=== PATIENT | male | born 1955 ===

== ENCOUNTER → 2016-07-29 08:12 | Day surgery (SDC) | payer OTHER ==
--- NOTE | 2016-07-17 09:24 | HP ---
CC: Perry Camacho MD ADMISSION HISTORY AND PHYSICAL: DATE OF ADMISSION: 07/29/16 ATTENDING SURGEON: Gonzalo Paez MD (NURIA Good dictating). CHIEF COMPLAINT: Right inguinal hernia. HISTORY OF PRESENT ILLNESS: This is a generally healthy 61-year-old male who beginning in early Apr began to notice a bulge in the right groin associated with some minor discomfort. This has si nce progressed to occur more frequently during the day when he is upright and active and also increa sed in size. The bulge has remained in the corner of the groin and has not extended into the scrotu m and it has not resulted in any particular GI or symptom changes. He has not had anything to flowers ggest incarceration or strangulation. He does occasionally manually reduce hernia, but most of the time it self-reduces when he is recumbent. He was seen in the office by Dr. Paez on 04/23/16, at which time the exam confirmed the presence of a nontender reducible right inguinal hernia. The p atient also has a history of bilateral hydroceles. He is status post open repair of left inguinal h ernia with mesh by Dr. Carballo about [address] Paez recommended repair and the patien t understands the indications, the risks, benefits, and alternatives. He would like to proceed as s cheduled with open repair right inguinal hernia with mesh. PAST MEDICAL HISTORY: 1. Hyperlipidemia. 2. Irritable bowel syndrome (constipation alternating with diarrhea, but generally controlled by di et). 3. He has bilateral hydroceles. PREVIOUS SURGERIES: Left inguinal herniorrhaphy with mesh, varicocelectomy. CURRENT MEDICATIONS: 1. Rosuvastatin 5 mg once daily. 2. Aspirin 81 mg once daily (the patient instructed to hold for 1 week preoperatively). 3. He also uses a topical [id number] product for rosacea. DRUG ALLERGIES: None known. FAMILY HISTORY: Negative for anesthesia problems, bleeding or clotting disorders. SOCIAL HISTORY: The patient is . He has 2 children. 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 He quit smoking at age 23. He does drink 1 light beer daily and occasionally a glass or two of wine. He denies any other recreational drug use. REVIEW OF SYSTEMS: General: No recent constitutional symptoms or acute illnesses. His weight has b een stable. Cardiovascular: No chest pain, palpitations, history of hypertension, or murmur. He i s very active and likes to work year round and ski's regularly as well. Respiratory: No history of asthma, chronic cough, or shortness of breath. GI: No additions to above other than that he did u nder colonoscopy within approximately the past 3 years, which was a normal study. We have recomme nded 10-year followup. : No problems reported. Recent prostate exam and PSA normal by Dr. Ebenezer fisher. Endocrine: No diabetes or thyroid dysfunction. PHYSICAL EXAMINATION GENERAL: Well-nourished, well-developed male, in no acute distress. VITAL SIGNS: Height 70 inches, weight 169 pounds. Temperature 98.4, blood pressure 132/78, pulse 6 6, respirations 18. HEENT: Pupils equal and round, reactive. EOMs intact. No conjunctival pallor. Oropharynx: Teeth in good repair. No intraoral lesions. NECK: No lymphadenopathy, thyromegaly, or masses. LUNGS: Clear to auscultation. No wheezes or rales. HEART: Regular rate and rhythm. No murmur. ABDOMEN: Soft, nontender to palpation. No palpable masses or organomegaly. I was unable to detect hernia on today's exam, but as he notes it is intermittently present. EXTREMITIES: No edema. BACK: No spinous process or CVA tenderness. NEUROLOGICAL: Grossly intact. SKIN: Warm and dry. No suspicious rashes or lesions. RECTAL: Not done. IMPRESSION: Right inguinal hernia. PLAN: Open repair of right inguinal hernia with mesh. NURIA BLACKWOOD [id number]/[facility] #: [id number]
[~2016-07-29 08:12] MED LIST: Buffered Lidocaine 1% SYR 3ML* 3 ML/SYR SYRINGE INTRADERM ONE; Bupivacaine 0.25% EPI 200,000* 30 ML SDV ONE; Bupivacaine 0.5% W/EPI SDV* 30 ML VIAL ONE; Chloroprocaine 2%* 20 ML VIAL ONE; DiMENhydriNATE IV* 50 MG/ML VIAL IV PUSH PRN; HYDROcodone/ACETAMIN 5-325 MG* 1 TAB PO PRN; Lidocaine 1% INJ* 10 MG/ML 30 ML SDV ONE; Midazolam* 1 MG/ML 2 ML VIAL (2 MG) ONE; Midazolam* 1 MG/ML 5 ML VIAL (5 MG) ONE; ceFAZolin 2 GM PREMIX (*) 2 GM/50 ML BAG IVPB ONE; celeCOXIB CAP* 100 MG ONE; celeCOXIB CAP* 200 MG PO ONE; fentaNYL* 50 MCG/ML 2 ML VIAL (100 MCG VIAL) IV PRN; fentaNYL* 50 MCG/ML 2 ML VIAL (100 MCG VIAL) ONE
--- NOTE | 2016-07-29 12:34 | SURGPN ---
Brief Operative Note - Surgery Procedures: Procedures OPERATIVE REPORT PRE-OP: Right inguinal hernia POST-OP: Right indirect inguinal hernia PROCEDURE: Open repair with mesh of indirect inguinal hernia SURGEON: MD Jeannine ANESTHESIA:Local Spinal/MAC with Dr. Sykes ASST: NURIA Meyers IVF: 1 liter of crystalloid EBL:min SPECIMEN:none DRAIN: none WOUND CLASS:One COMPLICATIONS: none TO PACU
[2016-07-29 14:10] VITALS: BP 105/66
--- NOTE | 2016-07-30 08:04 | OP ---
CC: [facility] OPERATIVE REPORT: DATE OF OPERATION: 07/29/16 DATE OF : 53 SURGEON: Gonzalo Paez MD FAGOT HEATER: NURIA Staley ANESTHESIOLOGIST: Dr. Sykes. ANESTHESIA: Spinal with local and monitored anesthesia care. PRE-OP DIAGNOSIS: Right inguinal hernia. POST-OP DIAGNOSIS: Right indirect inguinal hernia. OPERATIVE PROCEDURE: Open repair of a right indirect inguinal hernia with Covidien ProGrip mesh. ESTIMATED BLOOD LOSS: Minimal. WOUND CLASSIFICATION: I. COMPLICATIONS: None. DRAINS: None. SPECIMENS: None. DESCRIPTION OF PROCEDURE: Written informed consent was obtained, the right groin was marked with in delible ink and preoperative antibiotics were administered. The patient was taken to the operating room, placed in the supine position. Sequential compression devices and a warming blanket were appl ied. Spinal anesthetic was administered as well as intravenous sedation. He was placed in the supi ne position. The right lower abdomen and groin were prepped and draped in the usual sterile fashion . Time-out verification was completed. 0.5% Marcaine was then infiltrated in the right groin and an oblique incision of about 3.5 to 4 cm w as made several fingerbreadths above the inguinal crease, carried down through Kevin's fascia. The external oblique aponeurosis was identified and opened in the direction of its fibers to expose the underlying spermatic cord. The spermatic cord was then encircled with one quarter-inch [place] drain at the pubic tubercle. The cord was then dissected free from the tissue beneath it to expose the direct space, which appear ed to be intact without evidence of hernia. Once the cord structures had been identified, back towards the inguinal ring, we identified the epig astric vessels. The cord structures were then carefully evaluated and with care, I was able to iden tify a rather large indirect inguinal hernia sac, which had become quite scarred to the cord structu res itself and we were able to, with combination of sharp and blunt dissection, separate this from t he cord structures with care to prevent injury to the structures up into the internal ring, which wa s mildly patulous. 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 The indirect inguinal hernia sac was easily reduced into the retroperitoneum. Next, a Covidien pre-cut ProGrip mesh was then placed, sutured to pubic tubercle medially, the conjo int tendon superiorly, the musculature laterally with interrupted 0 Polysorb suture. It was secured to the inguinal ligament inferiorly with a running 0 Polysorb suture. The mesh sat nicely without wrinkling or tension and reconstructed the internal ring nicely. Hemostasis was assured and additional Marcaine was infiltrated. The external oblique aponeurosis wa s closed with running 3-0 Polysorb suture. The Kevin's fascia was closed with interrupted 3-0 Poly sorb suture. The skin was approximated with subcuticular 4-0 Polysorb suture. Steri-Strips and maximo rile dressings were applied. The patient tolerated the procedure well and was taken to the recovery room in stable condition. [id number]/[facility] #: [id number]
== END | disposition home or self-care (01) ==
LOC: OR 08:12
PROVIDERS: ATTEND Surgery
DX: K40.90 Unilateral inguinal hernia, without obstruction or gangrene, not specified as recurrent (principal); E78.5 Hyperlipidemia, unspecified; Z87.891 Personal history of nicotine dependence
CPT/HCPCS: A9270-GY; C1781; J0690; J2250; J2400; J3010